=== PATIENT | male | born 1975 | race Caucasian/White ===

== ENCOUNTER 2024-09-22 08:16 | Outpatient (CLI) | payer OTHER | END 2024-09-22 08:17 | disposition home or self-care (01) | LOC: CSHCT 08:16 | PROVIDERS: ATTEND Physician Assistant | DX: J01.90 Acute sinusitis, unspecified (principal) ==

== ENCOUNTER 2024-11-07 06:07 | Day surgery (SDC) | payer OTHER ==
[2024-07-16 10:53] VITALS: BMI 34.6
== END 2024-11-07 10:10 | disposition home or self-care (01) ==
LOC: CSHSDC 06:07
PROVIDERS: ATTEND Surgery
PROC: 0DJD8ZZ Inspection of Lower Intestinal Tract, Via Natural or Artificial Opening Endoscopic (ICD-10-PCS; principal; 2024-11-07)
DX: Z12.11 Encounter for screening for malignant neoplasm of colon (principal); K64.8 Other hemorrhoids

== ENCOUNTER 2024-12-19 08:52 | Outpatient (CLI) | payer OTHER | END 2024-12-19 08:53 | disposition home or self-care (01) | LOC: CSHRAD 08:52 | PROVIDERS: ATTEND Family Medicine Sports Medicine | DX: S99.912A Unspecified injury of left ankle, initial encounter (principal); R07.81 Pleurodynia ==